=== PATIENT | male | born 1955 ===

== ENCOUNTER 2024-04-17 13:00 | Outpatient (RCR) | payer MEDICARE, SELFPAY ==
--- NOTE | 2023-10-22 11:49 | URNOTE ---
?Request received for authorization for?[employer] ([id number]). Prior authorization is not required per [facility] Drug Authorization List.
--- NOTE | 2023-10-22 12:41 | PC.NURSE ---
Diagnosis: Prostate Cancer
[2023-10-29 11:14] VITALS: BP 132/76; PULSE 90; RESP 16; TEMP 36.1; O2SAT 96
[2023-10-29] MEDS: LEUPROLIDE ACETATE 22.5 MG (SQ) SYRINGE SUBCUT (11:49)
[2024-01-21 12:44] VITALS: BP 130/76; PULSE 83; RESP 18; TEMP 36.2; O2SAT 98
[2024-01-21] MEDS: LEUPROLIDE ACETATE 22.5 MG (SQ) SYRINGE SUBCUT (12:49)
[2024-01-21 13:26] LABS: PSA Diagnostic* < 0.06 ng/mL (0.10-4.00)
[2024-01-22 20:31] LABS: Testosterone, Adult Male <3 ng/dL (300-720)
[2024-04-17 13:48] VITALS: BP 154/78; PULSE 97; RESP 16; TEMP 36.4; O2SAT 97
[2024-04-17] MEDS: LEUPROLIDE ACETATE 22.5 MG (SQ) SYRINGE SUBCUT (13:48)
== END 2024-04-26 23:59 | disposition home or self-care (01) ==
LOC: CCIC 13:00
PROVIDERS: Radiology Radiation Oncology; Visit Provider Clinical Nurse Specialist
DX: C61 Malignant neoplasm of prostate (principal)
CPT/HCPCS: 36415; 84153; 84403; 96372; 96401; 96402; J9217